=== PATIENT | male | born 1970 | race Caucasian/White ===

== ENCOUNTER 2016-06-20 05:56 | Emergency (ER) | payer OTHER ==
[~2016-06-20 05:56] MED LIST: BACTRIM DS1 TAB PO; BP PILL; CLINDAMYCIN HC300 MG PO; ENTERIC COATED325 M1 PO; LOPRESSOR25 MG PO; MAXZIDE-25 PO; NICOTINE T21 MG/24 H TOP; WATER; WATER PILL
--- NOTE | 2016-06-20 07:00 | DIAGNOSTIC IMAGING REPORT ---
PROCEDURE: XR CHEST 1 VIEW INDICATION: CHEST PAIN TECHNIQUE: Portable AP view (0620 hours). COMPARISON: Compared to chest x-ray on 02/28/2016. FINDINGS: Allowing for overlying wires and electrodes, lungs are clear. Heart and mediastinum are normal. Thorax is normal. IMPRESSION: 1. Negative chest.
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
--- NOTE | 2016-06-20 11:50 | ED ORDER SUMMARY ---
..... Patient: CECIL MAYER OrderSheet [facility] VisitID: [id number] [place] [address] 45y, M Registration Date/Time: 06/20/2016 ORDER SHEET Weight: 81.6 kg (stated) Allergies: No Known Drug Allergy GENERAL ORDERS: Chest 1V Urgent (06:04 06/20/2016 Kristyn Cancino) (Ack 6:06 AMcQuoid ER Tech1) (6:21 GUnger) Uniform Attendant (Continuous) (CP) (06:04 06/20/2016 Kristyn Cancino) (Ack 6:06 AMcQuoid ER Tech1) (6:33 RCkimberliier R.N.) CBC w Diff Urgent (06:05 06/20/2016 Kristyn Cancino) (Ack 6:06 AMcQuoid ER Tech1) (7:23 AMcQuoid ER Tech1) CMP Urgent (06:05 06/20/2016 Kristyn Cancino) (Ack 6:06 AMcQuoid ER Tech1) (7:23 AMcQuoid ER Tech1) PT with INR Urgent (06:05 06/20/2016 Kristyn Cancino) (Ack 6:06 AMcQuoid ER Tech1) (7:23 AMcQuoid ER Tech1) PTT Urgent (06:05 06/20/2016 Kristyn Cancino) (Ack 6:06 AMcQuoid ER Tech1) (7:23 AMcQuoid ER Tech1) Troponin-I Urgent (06:05 06/20/2016 Kristyn Cancino) (Ack 6:06 AMcQuoid ER Tech1) (7:23 AMcQuoid ER Tech1) Urine Drug Screen Urgent (06:05 06/20/2016 Kristyn Cancino) (Ack 6:06 AMcQuoid ER Tech1) (6:49 AMcQuoid ER Tech1) Pulse oximeter (06:05 06/20/2016 Kristyn Cancino) (Ack 6:06 AMcQuoid ER Tech1) (6:33 RCkimberliier R.N.) EKG - ER Stat (06:05 06/20/2016 Kristyn Cancino) (Ack 6:06 AMcQuoid ER Tech1) (6:15 AMcQuoid ER Tech1) BNP Urgent (06:41 06/20/2016 Kristyn Cancino) (Ack 6:43 IJurca ER Tech1) (7:22 AMcQuoid ER Tech1) Troponin-I Urgent (08:11 06/20/2016 Kristyn Cancino) (Ack 8:59 RKaruga) (10:49 ALawrence ER Tech1) MEDICATION ORDERS: Ativan PO 1 mg (HIGH ALERT MEDICATION, NOW) (06:29 06/20/2016 Kristyn Cancino) (6:32 RCollier R.N.) EMLA Cream Topical 1 application (NOW) (06:32 06/20/2016 RCollier R.NStevan per protocol) (6:33 RCollier R.N.) IV FLUIDS: IV Saline Lock (06:05 06/20/2016 Kristyn Cancino) (Ack 6:14 RCollier R.N.) Lasix IV 20 mg (NOW) (08:10 06/20/2016 Kristyn Cancino) (Ack 10:36 [facility]) ORDER SHEET NOTES: [Electronically signed by Rishi Lockwood Dr. (11:09 06/25/2016)] [Electronically signed by Germaine Mckenzie R.N. (09:07/02/2016)] [Electronically locked/signed by Germaine Mckenzie R.N. (09:07/02/2016)]
--- NOTE | 2016-06-20 11:50 | ED ORDER SUMMARY ---
..... Patient: CECIL MAYER OrderSheet [facility] VisitID: [id number] [place] [address] 45y, M Registration Date/Time: 06/20/2016 ORDER SHEET Weight: 81.6 kg (stated) Allergies: No Known Drug Allergy GENERAL ORDERS: Chest 1V Urgent (06:04 06/20/2016 Kristyn Cancino) (Ack 6:06 AMcQuoid ER Tech1) (6:21 GUnger) Diet Consultant (Continuous) (CP) (06:04 06/20/2016 Kristyn Cancino) (Ack 6:06 AMcQuoid ER Tech1) (6:33 RCkimberliier R.N.) CBC w Diff Urgent (06:05 06/20/2016 Kristyn Cancino) (Ack 6:06 AMcQuoid ER Tech1) (7:23 AMcQuoid ER Tech1) CMP Urgent (06:05 06/20/2016 Kristyn Cancino) (Ack 6:06 AMcQuoid ER Tech1) (7:23 AMcQuoid ER Tech1) PT with INR Urgent (06:05 06/20/2016 Kristyn Cancino) (Ack 6:06 AMcQuoid ER Tech1) (7:23 AMcQuoid ER Tech1) PTT Urgent (06:05 06/20/2016 Kristyn Cancino) (Ack 6:06 AMcQuoid ER Tech1) (7:23 AMcQuoid ER Tech1) Troponin-I Urgent (06:05 06/20/2016 Kristyn Cancino) (Ack 6:06 AMcQuoid ER Tech1) (7:23 AMcQuoid ER Tech1) Urine Drug Screen Urgent (06:05 06/20/2016 Kristyn Cancino) (Ack 6:06 AMcQuoid ER Tech1) (6:49 AMcQuoid ER Tech1) Pulse oximeter (06:05 06/20/2016 Kristyn Cancino) (Ack 6:06 AMcQuoid ER Tech1) (6:33 RCkimberliier R.N.) EKG - ER Stat (06:05 06/20/2016 Kristyn Cancino) (Ack 6:06 AMcQuoid ER Tech1) (6:15 AMcQuoid ER Tech1) BNP Urgent (06:41 06/20/2016 Kristyn Cancino) (Ack 6:43 IJurca ER Tech1) (7:22 AMcQuoid ER Tech1) Troponin-I Urgent (08:11 06/20/2016 Kristyn Cancino) (Ack 8:59 RKaruga) (10:49 ALawrence ER Tech1) MEDICATION ORDERS: Ativan PO 1 mg (HIGH ALERT MEDICATION, NOW) (06:29 06/20/2016 Kristyn Cancino) (6:32 RCollier R.N.) EMLA Cream Topical 1 application (NOW) (06:32 06/20/2016 RCollier R.NStevan per protocol) (6:33 RCollier R.N.) IV FLUIDS: IV Saline Lock (06:05 06/20/2016 Kristyn Cancino) (Ack 6:14 RCollier R.N.) Lasix IV 20 mg (NOW) (08:10 06/20/2016 Kristyn Cancino) (Ack 10:36 [facility]) ORDER SHEET NOTES: [Electronically signed by Rishi Lockwood Dr. (11:09 06/25/2016)] [Electronically signed by Germaine Mckenzie R.N. (09:07/02/2016)] [Electronically locked/signed by Germaine Mckenzie R.N. (09:07/02/2016)]
--- NOTE | 2016-06-20 11:50 | ED CLINICAL REPORT ---
Clinical Report - Physicians/Mid Levels [facility] [address] [place] [address] 06/20/2016 5:59 Patient: CECIL MAYER Arrived- By private vehicle. Historian- patient. HISTORY OF PRESENT ILLNESS Chief Complaint: CHEST PAIN. At its maximum, severity described as moderate. When seen in the E.D., severity described as moderate. Modifying factors- worsened by exertion. Relieved by rest. This started for the past several days and is still present and worsening. (since last night). It was abrupt in onset and has been constant but is not gone now. Onset not at rest. It is described as pressure and it is described as located in the central chest area. No radiation. No nausea, vomiting or diaphoresis. He has had difficulty breathing. No additional chest pain. (Reports no hemoptysis. No hematemesis. No recent surgeries. No recent trauma. No exogenous estrogen use. patient reports running out of the "water pill "). Similar symptoms previously: Many times. Recent medical care: Not recently seen/assessed. REVIEW OF SYSTEMS No fever, chills, pedal edema or calf pain. All systems otherwise negative, except as recorded above. PAST HISTORY See nurses notes. Risk factors for DVT/pulmonary embolism- congestive heart failure. Denies the following risk factors for DVT/PE - history of DVT and pulmonary embolism, recent surgery, recent DE and cancer. Denies the following risk factors for DVT/PE - clotting disorder, estrogens, obesity, immobility and advanced in age. Denies the following risk factors for DVT/PE - vena cava filter. Medications: Aspirin Oral (Tablet Chewable 81 mg) 1 tablet, day. HydrALAZINE HCl Oral. Lasix Oral. Metoprolol Tartrate Oral. Omeprazole Oral. Allergies: No Known Drug Allergy. SOCIAL HISTORY Smoker- current status unknown. History of drug use. No alcohol use. Is a local resident. FAMILY HISTORY History of heart disease (unsure of any early cardiac disease). PHYSICAL EXAM Appearance: Alert. Oriented X3. No acute distress. No marfanoid habitus. (Nontoxic in appearance). Eyes: Pupils equal, round and reactive to light. Eyes normal inspection. ENT: Ears normal. Nose normal. Pharynx normal. Neck: Normal inspection. Neck supple. CVS: Normal heart rate and rhythm. Heart sounds normal. Pulses normal. Respiratory: No respiratory distress. Breath sounds normal. Chest nontender. Abdomen: Soft and nontender. Bowel sounds normal. Skin: Skin warm and dry. Normal skin color. No rash. Normal skin turgor. Extremities: Extremities exhibit normal ROM. No clubbing present or lower extremity edema. No lower extremity edema. Neuro: Oriented X 3. No motor deficit. No sensory deficit. Reflexes normal. LABS, X-RAYS, AND EKG EKG: Normal sinus rhythm. Rate: 85. Normal P waves. Normal MONA. Normal QT and QTc. ST depression in lead V3, V4, V5 and V6. T wave inversion in lead II, III and aVF. EKG unchanged when compared with prior EKG. The study has been interpreted contemporaneously. The study has been independently viewed by me. The EKG appears to be a good tracing. EKG #2: Rate: 85. Normal P waves. Normal MONA. Normal QRS complex. Normal axis. Normal ST and T waves, QT and QTc. T wave inversion in lead II, III and aVF. Posterior leads on V4 - 6. No STEMI. The study has been interpreted contemporaneously. The study has been independently viewed by me. The EKG appears to be a good tracing. Chest X-ray: (PROCEDURE: XR CHEST 1 VIEW INDICATION: CHEST PAIN TECHNIQUE: Portable AP view (0620 hours). COMPARISON: Compared to chest x-ray on 02/28/2016. FINDINGS: Allowing for overlying wires and electrodes, lungs are clear. Heart and mediastinum are normal. Thorax is normal. IMPRESSION: 1. Negative chest.). Laboratory Tests: CBC w Diff: (WALDO: 06/20/2016 07:05) ( MsgRcvd 06/20/2016 07:15) Final results Test Result Flag Units (Reference) WHITE BLOOD COUNT 8.4 K/uL (4.5-11.5) RED BLOOD COUNT 4.96 M/uL (4.50-5.90) HEMOGLOBIN 15.1 gm/dL (13.5-17.5) HEMATOCRIT 45.2 % (41.0-53.0) MEAN CELL VOLUME 91 fL (80-100) MEAN CORPUSCULAR HGB 30 pg (26-34) MEAN CORPUSCULAR HGB CONC 33 g/dL (31-37) RED CELL DISTRIBUTION WIDTH 13.5 % (11.6-14.8) PLATELET COUNT 173 K/uL (150-400) NEUTROPHIL % 65.3 % (50-75) LYMPH % 21.5 L % (25-40) MONO % 11.8 % (3-14) EOSINOPHIL % 1.0 % (0-4) BASOPHIL % 0.4 % (0-2) PT with INR: (WALDO: 06/20/2016 07:05) ( [facility] 06/20/2016 07:24) Final results Test Result Flag Units (Reference) INR 1.7 H (0.8-1.2) Low Intensity Therapy: INR 1.5-2.0 PT range 18.5-23.1Mod.Intensity Therapy: INR 2.0-3.0 PT range 23.1-31.5High Intensity Therapy: INR 2.5-3.5 PT range 27.4-35.5High Intensity Therapy 2: INR 3.0-4.0 PT range 31.5-39.3 APTT 49 H SECONDS (24-34) Troponin-I: (WALDO: 06/20/2016 10:48) ( [facility] 06/20/2016 11:13) Final results Test Result Flag Units (Reference) TROPONIN I <0.05 ng/mL (0.00-1.5) TROPONIN REFERENCE RANGE:<0.1 NEGATIVE0.1-1.5 INDETERMINANT>1.5 POSITIVE BNP: (WALDO: 06/20/2016 07:05) ( [facility] 06/20/2016 07:40) Final results Test Result Flag Units (Reference) B-TYPE NATRIURETIC PEPTIDE 461 H pg/ml (5-100) Urine Drug Screen: (WALDO: 06/20/2016 06:52) ( [facility] 06/20/2016 07:18) Final results Test Result Flag Units (Reference) AMPHETAMINE/METHAMPHETAMINE POSITIVE H (NEGATIVE) BARBITURATE NEGATIVE (NEGATIVE) BENZODIAZEPINE NEGATIVE (NEGATIVE) CANNABINOID POSITIVE H (NEGATIVE) COCAINE NEGATIVE (NEGATIVE) ECSTASY POSITIVE H (NEGATIVE) METHADONE NEGATIVE (NEGATIVE) OPIATE NEGATIVE (NEGATIVE) The urine drug screen is a qualitative screening test fordrug overdose and abuse. All screen results should beconsidered as presumptive.Drugs screened for are as follows:BenzodiazepinesCocaineAmphetamines/MetamphetaminesTHC (Tetrahydrocannabinol)OpiatesBarbituratesEcstasyMethadonePositive results are unconfirmed. For confirmation, notifythe lab for the specimen to be sent to the reference lab.All confirmations must be performed by a differentmethodology.The ingestion of natural herbal and plant productscontaining Ephedra/Ephedra metabolites can produce in urineone or more substances capable of cross reacting withamphetamine/methamphetamine immunoassays. These testsprovide a preliminary result only. A more specificalternative chemical method must be used to obtain aconfirmed analytical result. CMP: (WALDO: 06/20/2016 07:05) ( MsgRcvd 06/20/2016 07:33) Final results Test Result Flag Units (Reference) GLUCOSE 74 mg/dL (70-110) BUN 23 H mg/dL (7-18) CREATININE 1.9 H mg/dL (0.6-1.3) Estimated GFR 40.59 mL/min Estimated GFR- 49.19 mL/min Note: Persistent reduction over 3 months in eGFR<60 mL/min/1.73 m2 defines CKD. Patients with eGFR values>=60 mL/min/1.73 m2 may also have CKD if evidence ofpersistent proteinuria. Additional information may be foundat www.kidney.org. SODIUM 134 L mmol/L (136-145) POTASSIUM 3.8 mmol/L (3.5-5.1) CHLORIDE 102 mmol/L (98-107) CARBON DIOXIDE 27 mmol/L (21-32) CALCIUM 9.1 mg/dL (8.5-10.1) TOTAL PROTEIN 7.8 g/dL (6.4-8.2) ALBUMIN 3.6 g/dL (3.3-5.0) BILIRUBIN, TOTAL 0.5 mg/dL (0.0-1.0) ALKALINE PHOSPHATASE 181 H U/L (46-116) AST (SGOT) 56 H U/L (15-37) ALT (SGPT) 62 U/L (12-78) TROPONIN I <0.05 ng/mL (0.00-1.5) TROPONIN REFERENCE RANGE:<0.1 NEGATIVE0.1-1.5 INDETERMINANT>1.5 POSITIVE . PROGRESS AND PROCEDURES Course of Care: The patient is a pleasant 45-year-old male presented for a vaginal chest pain and shortness of breath. At this time differential diagnosis includes pulmonary embolism, acute myocardial infarction, and congestive heart failure. Other considerations includes pneumonia and pneumothorax. Patient will be evaluated with chest x-ray, EKG, and laboratory studies. Because of the patient's symptoms change emergency department and worsening of symptoms,the troponin will be ordered. Patient is agreeable to the treatment and plan. Patient was here, patient had refused IV drop. Patient was reporting severe discomfort with the IV from nursing staff. Per nursing staff, patient was very upset with the care he was given wall awaiting lab tests. The patient has been refusing further lab draws. I person spoke with the patient. Patient states that he does not want that particular nurse to be anywhere near him. Patient is agreeable to another person trying to obtainlab draw from him. The patient has been resting in bed and in no acute distress. Patient is nontoxic. Patient waseventually agreeable to the rest of the treatment and plan. Patient's workup was remarkable for slightly elevated BNP. Troponin is negative. Do not feel the patient is having an acute myocardial infarction.The patient also noted to have significant abnormalities on his urine drug screen. Patient likely with drug-induced congestive heart failure and chest pain. Offered patient admission to the hospital for further management of the symptoms The patient had declined offers of admission. I spoken with the patient in regards to the risks and benefits of leaving the hospital. Patient Do not feel patient can be forced to stay in the hospital. Recommended patient follow-up as soon as possible compromise. Patient understands the risks of leaving the hospital including and permanent disability. I discussed the patient workup, diagnosis, home care, follow-up, and return precautions. all questions answered. The patient expressed understanding of these instructions and was agreeable to them. patient is alert and oriented 4. The patientis clinically sober. Patient is able to make medical decisions for himself. Patient understands that he is welcome to return at any point in time and there'll be no crepitus held against him. Expressed my deep concern for his medical health and want him to return if he is agreeable. Critical care performed (40 minutes). Time is exclusive of separately billable procedures. Time includes: direct patient care, patient reassessment, coordination of patient care, interpretation of data (laboratory data and chest xrays), review of patient's medical records, medical consultation and documentation of patient care. Disposition: Discharged. Condition: stable. CLINICAL IMPRESSION 06/20/2016 07:44 BP: 101/76. HR: 88. RR: 19. O2 saturation: 98%. Pain level now: 5/10. Blood pressure normal. Oxygen saturation normal. Acute mild congestive heart failure INSTRUCTIONS Warnings: GENERAL WARNINGS: Return or contact your physician immediately if your condition worsens or changes unexpectedly, if not improving as expected, or if other problems arise. SPECIFICALLY, return if you develop chest, neck, jaw, shoulder, arm, or back pain, difficulty breathing, a fluttering sensation in your chest, lightheadedness, fainting, excessive fatigue, or sudden sweating. Your Current Medications: CONTINUE TAKING THE FOLLOWING MEDICATIONS: Aspirin Oral : Tablet Chewable 81 mg, 1 tablet day. HydrALAZINE HCl Oral. Lasix Oral. Metoprolol Tartrate Oral. Omeprazole Oral. Prescription Medications: Lasix 40 mg: take 1 orally every 24 hours. Dispense twenty (20). No refills. Substitution is permissible. Follow-up: Return to the emergency department as needed. Follow up with your doctor in three days. Reason for referral: recheck today's concerns. Summary of care provided to patient via paper. Screening today revealed the patient's blood pressure to be in the normal range. The patient should follow up with a primary care provider for blood pressure management. Understanding of the discharge instructions verbalized by patient. (Electronically signed by Rishi Lockwood Dr. 06/25/2016 11:09)
--- NOTE | 2016-07-02 09:01 | ED MED RECONCILIATION SUMMARY ---
Patient: CECIL MAYER Medication Reconciliation Report [facility] VisitID: [id number] [address] [place] [address] 45y, M Registration Date/Time: 06/20/2016 Weight: 81.6 kg Height/Length: 70 in. BMI: 25.8 ALLERGIES: No Known Drug Allergy The patient's Home Medications are listed below: CONTINUE TAKING THE FOLLOWING MEDICATIONS: Aspirin Oral (81 mg) 1 tablet, day HydrALAZINE HCl Oral Lasix Oral Metoprolol Tartrate Oral Omeprazole Oral The source(s) of the original Home Medication information: Not obtained. The following Medications were given to the patient in the Emergency Department: Ativan [PO] PO 1 mg, administered: 06/20/2016 6:30:00 AM EMLA Cream [Topical] Topical 1 application, administered: 06/20/2016 6:32:00 AM The following Medications were prescribed to the patient: Lasix 40 mg: take 1 orally every 24 hours. Dispense twenty (20). No refills. Substitution is permissible. -- Risih Lockwood Dr.
--- NOTE | 2016-07-02 09:01 | ED MAR SUMMARY ---
..... Medication Administration Record [facility] [address] [place] [address] Patient: CECIL MAYER Visit ID: [id number] 45y, M Weight: 81.6 kg Height/Length: 70 in BMI: 25.8 ALLERGIES: No Known Drug Allergy Given 06:30 06/20/2016 Lidia Grimes, R.N. Medication Administered: ATIVAN [PO] (LORAZEPAM), Dose: 1 mg Tablets PO. Medication Ordered: Ativan PO 1 mg (HIGH ALERT MEDICATION, NOW). Given 06:32 06/20/2016 Lidia Grimes, R.N. Medication Administered: EMLA CREAM [TOPICAL] (LIDOCAINE-PRILOCAINE), Dose: 1 application Cream Topical. Medication Ordered: EMLA Cream Topical 1 application (NOW).
--- NOTE | 2016-07-02 09:01 | ED MAR SUMMARY ---
..... Medication Administration Record Located Within [facility] [address] [place] [address] Patient: CECIL MAYER Visit ID: [id number] 45y, M Weight: 81.6 kg Height/Length: 70 in BMI: 25.8 ALLERGIES: No Known Drug Allergy Given 06:30 06/20/2016 Lidia Grimes, R.N. Medication Administered: ATIVAN [PO] (LORAZEPAM), Dose: 1 mg Tablets PO. Medication Ordered: Ativan PO 1 mg (HIGH ALERT MEDICATION, NOW). Given 06:32 06/20/2016 Lidia Grimes, R.N. Medication Administered: EMLA CREAM [TOPICAL] (LIDOCAINE-PRILOCAINE), Dose: 1 application Cream Topical. Medication Ordered: EMLA Cream Topical 1 application (NOW).
--- NOTE | 2016-07-02 09:01 | ED DISCHARGE INSTRUCTIONS ---
Patient: CECIL MAYER General Instructions [facility] VisitID: [id number] [place] [address] 45y, M Registration Date/Time: 06/20/2016 06/20/2016 07:44 BP: 101/76. HR: 88. RR: 19. O2 saturation: 98%. Pain level now: 5/10. Blood pressure normal. Oxygen saturation normal. Acute mild congestive heart failure INSTRUCTIONS Warnings: GENERAL WARNINGS: Return or contact your physician immediately if your condition worsens or changes unexpectedly, if not improving as expected, or if other problems arise. SPECIFICALLY, return if you develop chest, neck, jaw, shoulder, arm, or back pain, difficulty breathing, a fluttering sensation in your chest, lightheadedness, fainting, excessive fatigue, or sudden sweating. Your Current Medications: CONTINUE TAKING THE FOLLOWING MEDICATIONS: Aspirin Oral : Tablet Chewable 81 mg, 1 tablet day. HydrALAZINE HCl Oral. Lasix Oral. Metoprolol Tartrate Oral. Omeprazole Oral. Prescription Medications: Lasix 40 mg: take 1 orally every 24 hours. Dispense twenty (20). No refills. Substitution is permissible. Follow-up: Return to the emergency department as needed. Follow up with your doctor in three days. Reason for referral: recheck today's concerns. Summary of care provided to patient via paper. Screening today revealed the patient's blood pressure to be in the normal range. The patient should follow up with a primary care provider for blood pressure management. Understanding of the discharge instructions verbalized by patient. ADDITIONAL INFORMATION Heart Failure (Left Or Right Sided) The heart is a large muscle that pumps blood throughout the body. Blood carries oxygen to all the organs, muscles, and skin of your body. After the body takes the oxygen out of the blood, the blood returns to the heart. The right side of the heart collects that blood and pumps it to the lungs to receive fresh oxygen. This oxygen-rich blood from the lungs then returns to the left side of the heart where it is pumped back out to the rest of the body, starting the process all over. Heart Failure (HF) occurs when the heart muscle is weakened. This affects the pumping action of the heart. When the right side of the heart is weakened, it cant handle the blood it is receiving from the rest of the body. This blood returns to the heart through veins. When too much pressure builds up in the veins fluid leaks out into the tissues. [place] then causes that fluid to spread to those parts of the body that are the lowest. Therefore, one of the first symptoms of HF include swelling in the feet and ankles. If the condition worsens, the swelling can even go up past the knees. When the left side of the heart is weakened, it cant handle the blood it is receiving from the lungs. Pressure then builds up in the veins of the lungs, causing fluid to leakinto the lung tissues. This may be referred to as congestive heart failure.This causes you to feel short of breath, weak, or dizzy. These symptoms are often worse with exertion, such as climbing stairs or walking up hills. Lying flat is uncomfortable and can make your breathing worse. This may make sleeping difficult and force you to useextra pillows to sleep well. This condition may not only affect the right side of the heart or only the left side. While it may have started on one side, it often affects both sides. Causes of heart failure Coronary artery disease Prior heart attack (also known as acute myocardial infarction, or AMI) High blood pressure Damaged heart valve Diabetes Obesity Cigarette smoking Alcohol abuse Treatment Heart failure is a chronic condition. There is no cure. The purpose of medical treatment is to improve the pumping action of the heart, and remove excess water from the body. A number of medications can help achieve this goal,improvesymptoms and prevent the heart from becoming weaker. Another major goal is to better treat the caues of heart failure, such as diabetes, high blood pressure, and your lifestyle. Home care Check your weight every day. A sudden increase in weight gain could mean worsening heart failure. Use the same scale every day Weigh yourself at the same time every day Make sure the scale is on the floor, not on a rug Keep a record of your weight every day, so your doctor can see it. If you are not given a log sheet for this, keep a separate journal for this purpose. Reduce your salt (sodium) intake. Avoid high-salt foods (olives, pickles, smoked meats, salted potato chips, etc.). Do not add salt to your food at the table and use only small amounts of salt when cooking. Follow your doctors recommendations about how much fluid intake is safe. Stop smoking. Reduce alcohol use. Lose weight if you are overweight. The excess weight adds a lot of stress on the workload of the heart. Stay active. Talk to your doctor about an exercise program that is safe for your heart. Keep your feet elevated to reduce swelling. Ask your doctor about support hose as a preventive treatment for daytime leg swelling. Besides taking your medicine as instructed, an important part of treatment includes lifestyle changes such as diet, physical activity, stopping smoking, and weight control. Improve your diet. Often in the hospital, people are given a "heart healthy diet." This includes more fresh foods, lower fat, less processed foots, and lower salt. Follow-up care Follow up with your doctor as directed by our staff. Make sure to keep any appointments that were made for you as this can help better control heart failure. If an X-ray was done, you will be notified of any new findings that may affect your care. Call 911 Call 911 if you: Become severely short of breath Feel lightheaded, or feel like you might pass out or faint Have chest pain or discomfort that is different than usual, the medicines your doctor told you to use for this do not help, or the pain lasts longer than 10 to 15 minutes Suddendly develop a rapid heart rate When to seek medical care Get prompt medical attention if you have any of the following signs of worsening heart failure: Sudden weight gain (3or more pounds in one day or5or more pounds in one week) Trouble breathing not related to being active New or increased swelling of your legs or ankles Swelling or pain in your abdomen Breathing trouble at night (waking up short of breath, needing more pillows to breathe) Frequent coughing that doesnt go away Feeling much more tired than usual Furosemide Oral tablet What is this medicine? FUROSEMIDE (fyoor [place] se mide) is a diuretic. It helps you make more urine and to lose salt and excess water from your body. This medicine is used to treat high blood pressure, and edema or swelling from heart, kidney, or liver disease. How should I use this medicine? Take this medicine by mouth with a glass of water. Follow the directions on the prescription label. You may take this medicine with or without food. If it upsets your stomach, take it with food or milk. Do not take your medicine more often than directed. Remember that you will need to pass more urine after taking this medicine. Do not take your medicine at a time of day that will cause you problems. Do not take at bedtime. Talk to your corner brace block machine operator regarding the use of this medicine in children. While this drug may be prescribed for selected conditions, precautions do apply. What side effects may I notice from receiving this medicine? Side effects that you should report to your doctor or health transitional care nurse as soon as possible: blood in urine or stools dry mouth fever or chills hearing loss or ringing in the ears irregular heartbeat muscle pain or weakness, cramps skin rash stomach upset, pain, or nausea tingling or numbness in the hands or feet unusually weak or tired vomiting or diarrhea yellowing of the eyes or skin Side effects that usually do not require medical attention (report to your doctor or health transitional care nurse if they continue or are bothersome): headache loss of appetite unusual bleeding or bruising What may interact with this medicine? aspirin and aspirin-like medicines certain antibiotics chloral hydrate cisplatin cyclosporine digoxin diuretics laxatives lithium medicines for blood pressure medicines that relax muscles for surgery methotrexate NSAIDs, medicines for pain and inflammation like ibuprofen, naproxen, or indomethacin phenytoin steroid medicines like prednisone or cortisone sucralfate What if I miss a dose? If you miss a dose, take it as soon as you can. If it is almost time for your next dose, take only that dose. Do not take double or extra doses. Where should I keep my medicine? Keep out of the reach of children. Store at room temperature between 15 and 30 degrees C (59 and 86 degrees F). Protect from light. Throw away any unused medicine after the expiration date. What should I tell my health care provider before I take this medicine? They need to know if you have any of these conditions: abnormal blood electrolytes diarrhea or vomiting gout heart disease kidney disease, small amounts of urine, or difficulty passing urine liver disease an unusual or allergic reaction to furosemide, sulfa drugs, other medicines, foods, dyes, or preservatives or trying to get breast-feeding What should I watch for while using this medicine? Visit your doctor or health transitional care nurse for regular checks on your progress. Check your blood pressure regularly. Ask your doctor or health transitional care nurse what your blood pressure should be, and when you should contact him or her. If you are a diabetic, check your blood sugar as directed. You may need to be on a special diet while taking this medicine. Check with your doctor. Also, ask how many glasses of fluid you need to drink a day. You must not get dehydrated. You may get drowsy or dizzy. Do not drive, use machinery, or do anything that needs mental alertness until you know how this drug affects you. Do not stand or sit up quickly, especially if you are an older patient. This reduces the risk of dizzy or fainting spells. Alcohol can make you more drowsy and dizzy. Avoid alcoholic drinks. This medicine can make you more sensitive to the sun. Keep out of the sun. If you cannot avoid being in the sun, wear protective clothing and use sunscreen. Do not use sun lamps or tanning beds/booths. You have been given the following additional information: Heart Failure, General Furosemide Oral tablet (Electronically signed by Rishi Lockwood Dr. 06/25/2016 11:09)
--- NOTE | 2016-07-02 09:01 | ED MED RECONCILIATION SUMMARY ---
Patient: CECIL MAYER Medication Reconciliation Report [facility] VisitID: [id number] [address] [place] [address] 45y, M Registration Date/Time: 06/20/2016 Weight: 81.6 kg Height/Length: 70 in. BMI: 25.8 ALLERGIES: No Known Drug Allergy The patient's Home Medications are listed below: CONTINUE TAKING THE FOLLOWING MEDICATIONS: Aspirin Oral (81 mg) 1 tablet, day HydrALAZINE HCl Oral Lasix Oral Metoprolol Tartrate Oral Omeprazole Oral The source(s) of the original Home Medication information: Not obtained. The following Medications were given to the patient in the Emergency Department: Ativan [PO] PO 1 mg, administered: 06/20/2016 6:30:00 AM EMLA Cream [Topical] Topical 1 application, administered: 06/20/2016 6:32:00 AM The following Medications were prescribed to the patient: Lasix 40 mg: take 1 orally every 24 hours. Dispense twenty (20). No refills. Substitution is permissible. -- Rishi Lockwood Dr.
== END 2016-06-20 12:25 | disposition home or self-care (01) ==
LOC: ED SRH 05:56
DX: I50.9 Heart failure, unspecified (principal); K21.9 Gastro-esophageal reflux disease without esophagitis; Z86.711 Personal history of pulmonary embolism
CPT/HCPCS: 90100; 90616; 91320; 92760; 92761; 92762; 92763; 92764; 92765; 92766; 92767; 94001; 94060; 95059